=== PATIENT | female | born 1975 | race African-American/Black ===

== ENCOUNTER 2024-07-14 22:37 | Inpatient (IN) | payer MEDICARE ==
[~2024-07-14] VITALS: Ht 182.9 cm; Wt 106.6 kg
[2024-07-14 23:10] LABS: BASOPHILS % 0.3 % (0.0-1.0); EOSINOPHILS # (AUTO) 0.1 (0.0-0.4); EOSINOPHILS % 2.9 % (0.0-6.0); LYMPHOCYTES # (AUTO) 0.3 (1.0-3.2); LYMPHOCYTES % 8.5 % (18.0-39.1); MEAN CORPUSCULAR HEMOGLOBIN 28.3 pg (28-32); MEAN CORPUSCULAR HGB CONC 30.7 g/dL (31-35); MEAN CORPUSCULAR VOLUME 92.3 fL (81-99); MONOCYTES # (AUTO) 0.2 (0.2-0.8); MONOCYTES % 6.4 % (4.4-11.3); NEUTROPHILS # (AUTO) 2.8 (2.1-6.9); NEUTROPHILS % 81.6 % (38.7-80.0); RED BLOOD COUNT 2.33 x10e6/uL (3.6-5.1); RED CELL DISTRIBUTION WIDTH 15.8 % (11.7-14.4); WHITE BLOOD COUNT 3.42 x10e3/uL (4.8-10.8)
[2024-07-14 23:14] LABS: HEMATOCRIT 21.5 % (34.2-44.1); HEMOGLOBIN 6.6 g/dL (12.0-16.0); PLATELET COUNT 28 x10e3/uL (140-360)
[2024-07-14 23:32] LABS: ALBUMIN 2.6 g/dL (3.5-5.0); ALBUMIN/GLOBULIN RATIO 0.9 (0.8-2.0); ANION GAP 15.6 mmol/L (8-16); BILIRUBIN,TOTAL 0.3 mg/dL (0.2-1.2); CALCIUM 7.3 mg/dL (8.4-10.2); CREATININE, SERUM 4.11 mg/dL (0.57-1.11); TOTAL PROTEIN 5.5 g/dL (6.5-8.1)
[2024-07-14 23:42] LABS: POTASSIUM 5.6 mmol/L (3.5-5.1)
[2024-07-15] VITALS (60 sets, daily range): BP systolic 101–164; BP diastolic 45–92; PULSE 55–84; RESP 11–27; TEMP 94–98.4; O2SAT 90–100
[2024-07-15] MEDS ORDERED: CALCIUM GLUCONATE 10% INJ 9.3 MEQ in SODIUM CHLORIDE 0.9% 100 ML IV ONE
[2024-07-15] MEDS ORDERED: SODIUM CHLORIDE FLUSH 10 ML SYR INJ PRN (00:15)
[2024-07-15] MEDS: SODIUM CHLORIDE 0.9% 1000ML 1,000 ML IV ONE (00:26)
[2024-07-15] MEDS ORDERED: METHYLPREDNISOLONE SOD SUCC 125 MG/2ML VIAL IV ONE (00:30)
[2024-07-15] MEDS: METHYLPREDNISOLONE SOD SUCC 500 MG in SODIUM CHLORIDE 0.9% 100 ML IV ONE (00:37)
[2024-07-15] MEDS: MUPIROCIN 2% OINT 22 GM TUBE TOP SCH ×2 (00:37→18:00)
[2024-07-15] MEDS: SODIUM BICARBONATE 8.4% INJ 50 ML SYR IV STA (00:38)
[2024-07-15] MEDS: INSULIN REGULAR, HUMAN 100 UNIT/1 ML IV ONE ×2 (00:40→11:25)
[2024-07-15 00:41] LABS: BILIRUBIN,URINE NEGATIVE (NEGATIVE); CLARITY,URINE CLOUDY (CLEAR); COLOR,URINE YELLOW (YELLOW); GLUCOSE, URINE NEGATIVE (NEGATIVE); KETONES,URINE NEGATIVE (NEGATIVE); LEUKOCYTE ESTERASE ,URINE LARGE (NEGATIVE); NITRITE,URINE NEGATIVE (NEGATIVE); PH,URINE 7.5 (5 - 7); PROTEIN,URINE DIPSTICK >=300 (NEGATIVE); URINE UROBILINOGEN 0.2 mg/dL (0.2 - 1)
[2024-07-15] MEDS: CALCIUM GLUC 1 G/50 ML NACL 50 ML IV SCH (00:41)
[2024-07-15] MEDS: DEXTROSE 50% SYRINGE 50 ML IV STA ×2 (00:41→11:22)
[2024-07-15] MEDS: ALBUTEROL SULF 0.083% NEB SOLN 3 ML NEB NEB STA ×2 (00:54→11:29)
[2024-07-15 01:13] LABS: WBC,URINE (MAN) >50 /HPF (0-5)
[2024-07-15 01:14] LABS: BACTERIA,URINE MANY /HPF; EPITHELIAL CELLS,URINE MODERATE /LPF; RENAL EPITHELIAL CELLS,URINE FEW
[2024-07-15] MEDS: SODIUM CHLORIDE 0.9% 250ML 250 ML IV ONE (02:13)
[2024-07-15] MEDS ORDERED: LIPITOR20 MG PO (02:23)
[2024-07-15] MEDS ORDERED: LEVOTHYROXINE88 MCG PO (02:23)
[2024-07-15] MEDS ORDERED: HYDRALAZINE HCL50 MG PO (02:23)
[2024-07-15] MEDS ORDERED: OMEPRAZOLE40 MG PO (02:23)
[2024-07-15] MEDS ORDERED: HYDROCODON-ACE1 EAC9 (02:23)
[2024-07-15] MEDS ORDERED: AMBIEN10 MG PO (02:23)
[2024-07-15] MEDS ORDERED: NITROGLYCERIN0.4 MG SL (02:23)
[2024-07-15] MEDS ORDERED: MULTIVITAMIN1 EACH (02:23)
[2024-07-15] MEDS ORDERED: CELLCEPT500 MG PO (02:23)
[2024-07-15] MEDS ORDERED: RENVELA0.8 GM PO (02:23)
[2024-07-15] MEDS ORDERED: ASPIRIN EC81 MG PO (02:23)
[2024-07-15] MEDS ORDERED: ZOLOFT50 MG PO (02:23)
[2024-07-15] MEDS ORDERED: MIRABEGRON ER50 MG (02:23)
[2024-07-15] MEDS ORDERED: SODIUM BICARBO650 MG PO (02:23)
[2024-07-15] MEDS ORDERED: COREG12.5 MG PO (02:23)
[2024-07-15] MEDS ORDERED: HYDROXYCHLOROQ200 MG PO (02:23)
[2024-07-15] MEDS ORDERED: ASCORBIC ACID500 M2 PO (02:23)
[2024-07-15] MEDS ORDERED: FERROUS SULFAT325 MG PO (02:23)
[2024-07-15] MEDS ORDERED: PROTEIN (02:23)
[2024-07-15] MEDS ORDERED: FOLIC ACID0.4 MG PO (02:23)
[2024-07-15] MEDS ORDERED: NITROGLYCERIN 0.4 MG SUBL SL PRN (09:15)
[2024-07-15] MEDS ORDERED: DEXTROSE 50% SYRINGE 50 ML IV PRN (09:15)
[2024-07-15] MEDS ORDERED: TIZANIDINE HCL4 M1 PO (10:03)
[2024-07-15 10:09] LABS: BASOPHILS % 0.2 % (0.0-1.0); EOSINOPHILS % 0.2 % (0.0-6.0); HEMATOCRIT 23.6 % (34.2-44.1); HEMOGLOBIN 7.4 g/dL (12.0-16.0); LYMPHOCYTES # (AUTO) 0.1 (1.0-3.2); LYMPHOCYTES % 1.8 % (18.0-39.1); MEAN CORPUSCULAR HEMOGLOBIN 28.8 pg (28-32); MEAN CORPUSCULAR HGB CONC 31.4 g/dL (31-35); MEAN CORPUSCULAR VOLUME 91.8 fL (81-99); MONOCYTES # (AUTO) 0.1 (0.2-0.8); MONOCYTES % 1.1 % (4.4-11.3); NEUTROPHILS # (AUTO) 5.3 (2.1-6.9); NEUTROPHILS % 96.3 % (38.7-80.0); RED BLOOD COUNT 2.57 x10e6/uL (3.6-5.1); RED CELL DISTRIBUTION WIDTH 15.5 % (11.7-14.4); WHITE BLOOD COUNT 5.51 x10e3/uL (4.8-10.8)
[2024-07-15 10:11] LABS: PLATELET COUNT 45 x10e3/uL (140-360)
[2024-07-15 10:21] LABS: BASOPHILS % (MANUAL) 1 % (0-1.5); EOSINOPHILS % (MANUAL) 3 % (0-7); LYMPHOCYTES % (MANUAL) 5 % (19-48); MONOCYTES % (MANUAL) 8 % (3.4-9.0); NEUTROPHILS % (MANUAL) 83 % (40-74); NUCLEATED RED BLOOD CELLS 1
[2024-07-15 10:22] LABS: HYPOCHROMASIA SLIGHT; PLATELET ESTIMATE MARKEDLY DECREASED; PLATELET MORPHOLOGY COMMENT NORMAL; POIKILOCYTOSIS SLIG
[2024-07-15 10:31] LABS: ANION GAP 15.3 mmol/L (8-16); CREATININE, SERUM 4.32 mg/dL (0.57-1.11)
[2024-07-15 10:39] LABS: POTASSIUM 6.3 mmol/L (3.5-5.1)
[2024-07-15 10:49] LABS: MAGNESIUM 1.5 MG/DL (1.3-2.1); PHOSPHORUS 3.7 MG/DL (2.3-4.7)
[2024-07-15] MEDS: TIZANIDINE HCL 4 MG TAB PO SCH (10:57)
[2024-07-15] MEDS: HYDROCODONE/APAP 10MG-325MG TAB PO PRN (10:58)
[2024-07-15 11:03] LABS: INR 1.02
[2024-07-15 11:04] LABS: PARTIAL THROMBOPLASTIN TIME 41.8 seconds (23.8-35.5)
[2024-07-15 11:10] LABS: THYROID STIMULATING HORMONE 5.933 uIU/mL (0.350-4.940)
[2024-07-15] MEDS: CALCIUM GLUC 1 G/50 ML NACL 50 ML IV ONE (11:25)
[2024-07-15 11:26] LABS: FOLATE 8.9 ng/mL (7.0-15.4)
[2024-07-15] MEDS: INSULIN LISPRO 100 UNIT/1 ML 3ML VIAL SQ SCH (11:48)
[2024-07-15] MEDS: CHLOROTHIAZIDE SODIUM 500 MG VIAL IV ONE ×2 (11:49→15:10)
[2024-07-15] MEDS: FUROSEMIDE INJ 100 MG in SODIUM CHLORIDE 0.9% 90 ML IV SCH (11:55)
[2024-07-15] MEDS: SODIUM BICARBONATE 650 MG TAB PO SCH (15:10)
[2024-07-15] MEDS: ASCORBIC ACID 500 MG TAB PO SCH (16:51)
[2024-07-15] MEDS: SENNA-S TABLET PO SCH (16:51)
[2024-07-15] MEDS: CARVEDILOL 12.5 MG TAB PO SCH (16:52)
[2024-07-15 16:56] LABS: ANION GAP 18.6 mmol/L (8-16); CALCIUM 8.5 mg/dL (8.4-10.2); CREATININE, SERUM 4.4 mg/dL (0.57-1.11)
[2024-07-15 16:58] LABS: POTASSIUM 6.6 mmol/L (3.5-5.1)
[2024-07-15] MEDS: LORAZEPAM INJ 2 MG/ML VIAL IV ONE (18:35)
[2024-07-15] MEDS: ATORVASTATIN 40 MG TAB PO SCH (20:17)
[2024-07-15] MEDS ORDERED: ZOLPIDEM TARTRATE 10 MG TAB PO PRN (21:00)
[2024-07-15] MEDS: HEPARIN SOD (PORCINE) 1000 UNIT/ML SDV IV ONE (22:18)
[2024-07-15] MEDS: MANNITOL 25% 12.5GM/50 ML VIAL IV PRN (22:28)
[2024-07-16] VITALS (41 sets, daily range): BP systolic 102–160; BP diastolic 57–109; PULSE 60–94; RESP 11–23; TEMP 94–98.4; O2SAT 88–100
[2024-07-16] MEDS: LEVOTHYROXINE SODIUM 88 MCG TAB PO SCH (06:00)
[2024-07-16 06:19] LABS: BASOPHILS % 0.1 % (0.0-1.0); EOSINOPHILS % 0.1 % (0.0-6.0); HEMATOCRIT 22.8 % (34.2-44.1); HEMOGLOBIN 7.2 g/dL (12.0-16.0); LYMPHOCYTES # (AUTO) 0.2 (1.0-3.2); LYMPHOCYTES % 2.3 % (18.0-39.1); MEAN CORPUSCULAR HEMOGLOBIN 29.1 pg (28-32); MEAN CORPUSCULAR HGB CONC 31.6 g/dL (31-35); MEAN CORPUSCULAR VOLUME 92.3 fL (81-99); MONOCYTES # (AUTO) 0.3 (0.2-0.8); MONOCYTES % 3.2 % (4.4-11.3); NEUTROPHILS # (AUTO) 8.3 (2.1-6.9); NEUTROPHILS % 93.6 % (38.7-80.0); PLATELET COUNT 37 x10e3/uL (140-360); RED BLOOD COUNT 2.47 x10e6/uL (3.6-5.1); RED CELL DISTRIBUTION WIDTH 15.6 % (11.7-14.4); WHITE BLOOD COUNT 8.87 x10e3/uL (4.8-10.8)
[2024-07-16] MEDS: ONDANSETRON HCL INJ 2MG/ML 2ML 2 MG/ML VIAL IV PRN (06:41)
[2024-07-16 06:47] LABS: ALBUMIN/GLOBULIN RATIO 0.9 (0.8-2.0); ANION GAP 14.9 mmol/L (8-16); BILIRUBIN,TOTAL 0.4 mg/dL (0.2-1.2); CALCIUM 8.5 mg/dL (8.4-10.2); CREATININE, SERUM 3.63 mg/dL (0.57-1.11); POTASSIUM 4.9 mmol/L (3.5-5.1); TOTAL PROTEIN 6.3 g/dL (6.5-8.1)
[2024-07-16] MEDS: ASPIRIN 81 MG ENTERIC COATED PO SCH (09:41)
[2024-07-16] MEDS: FOLIC ACID 1 MG TAB PO SCH (09:41)
[2024-07-16] MEDS: SERTRALINE HCL 50 MG TAB PO SCH (09:41)
[2024-07-16] MEDS: LEVETIRACETAM 500MG/5ML VIAL 500 MG in SODIUM CHLORIDE 0.9% 100 ML IV SCH (10:57)
[2024-07-16] MEDS: HEPARIN SOD (PORCINE) 1000 UNIT/ML SDV ONE (11:21)
[2024-07-16] MEDS: SODIUM CHLORIDE 0.9% 1000ML 2,000 ML ONE (11:22)
[2024-07-16] MEDS: SODIUM CHLORIDE 0.9% 250ML 250 ML IV ONE (11:22)
[2024-07-16 12:25] LABS: % IRON SATURATION 78 % (15-50); IRON 171 ug/dL (50-170); TOTAL IRON BINDING CAPACITY 220 ug/dL (261-478); TRANSFERRIN 157 mg/dL (180-382)
[2024-07-16] MEDS ORDERED: PIPERACILLIN/TAZOBACTAM SOD 2.25 GM VIAL ONE (14:58)
[2024-07-16] MEDS: HYDRALAZINE HCL 25 MG TAB PO SCH (15:12)
[2024-07-16] MEDS: NYSTATIN 15 GM POWDER UD BTL TOP SCH (16:59)
[2024-07-16] MEDS: CADEXOMER IODINE 30 GM TUBE TOP SCH (16:59)
[2024-07-16] MEDS: ZINC OXIDE 30 GM TUBE TOP SCH (16:59)
[2024-07-16] MEDS: MEROPENEM 1 GM in SODIUM CHLORIDE 0.9% 100 ML IV SCH (20:30)
[2024-07-16] MEDS: Morphine 4mg INJECTION 4 MG/ML INJ IV PRN (21:56)
[2024-07-17] VITALS (24 sets, daily range): BP systolic 106–160; BP diastolic 58–111; PULSE 39–77; RESP 8–18; TEMP 95–97.8; O2SAT 86–100
[2024-07-17 06:10] LABS: COMPLEMENT C3 134 mg/dL (82-167)
[2024-07-17 07:29] LABS: COMPLEMENT C4 38 mg/dL (12-38)
[2024-07-17 07:35] LABS: HEPATITIS B CORE AB TOTAL Negative; HEPATITIS B SURFACE AG Negative; HEPATITIS C ANTIBODY Non Reactive
[2024-07-17 07:37] LABS: HEPATITIS B SURFACE AB QUANT Non Reactive
[2024-07-17 08:02] LABS: BASOPHILS % 0.3 % (0.0-1.0); EOSINOPHILS # (AUTO) 0.2 (0.0-0.4); EOSINOPHILS % 2.2 % (0.0-6.0); HEMATOCRIT 24.1 % (34.2-44.1); HEMOGLOBIN 7.5 g/dL (12.0-16.0); LYMPHOCYTES # (AUTO) 0.5 (1.0-3.2); LYMPHOCYTES % 7.9 % (18.0-39.1); MEAN CORPUSCULAR HGB CONC 31.1 g/dL (31-35); MEAN CORPUSCULAR VOLUME 93.1 fL (81-99); MONOCYTES # (AUTO) 0.4 (0.2-0.8); NEUTROPHILS # (AUTO) 5.7 (2.1-6.9); NEUTROPHILS % 83.3 % (38.7-80.0); RED BLOOD COUNT 2.59 x10e6/uL (3.6-5.1); RED CELL DISTRIBUTION WIDTH 15.5 % (11.7-14.4); WHITE BLOOD COUNT 6.86 x10e3/uL (4.8-10.8)
[2024-07-17 08:09] LABS: PLATELET COUNT 41 x10e3/uL (140-360)
[2024-07-17] MEDS ORDERED: HEPARIN SOD (PORCINE) 1000 UNIT/ML SDV IV PRN (10:00)
[2024-07-17] MEDS ORDERED: SODIUM CHLORIDE 0.9% 1000ML 2,000 ML IV PRN (10:00)
[2024-07-17 11:49] LABS: ANTI DNA DS ANTIBODY <1 IU/mL (0-9)
[2024-07-17] MEDS: SODIUM CHLORIDE 0.9% 250ML 250 ML IV ONE (12:29)
[2024-07-18] VITALS (19 sets, daily range): BP systolic 101–145; BP diastolic 53–83; PULSE 42–81; RESP 12–21; TEMP 97.4–97.9; O2SAT 91–98
[2024-07-18 07:45] LABS: BASOPHILS % 0.3 % (0.0-1.0); EOSINOPHILS # (AUTO) 0.2 (0.0-0.4); EOSINOPHILS % 3.5 % (0.0-6.0); HEMATOCRIT 28.9 % (34.2-44.1); HEMOGLOBIN 9.3 g/dL (12.0-16.0); LYMPHOCYTES # (AUTO) 0.5 (1.0-3.2); LYMPHOCYTES % 7.1 % (18.0-39.1); MEAN CORPUSCULAR HEMOGLOBIN 28.3 pg (28-32); MEAN CORPUSCULAR HGB CONC 32.2 g/dL (31-35); MONOCYTES # (AUTO) 0.5 (0.2-0.8); MONOCYTES % 7.6 % (4.4-11.3); NEUTROPHILS # (AUTO) 5.6 (2.1-6.9); NEUTROPHILS % 81.2 % (38.7-80.0); PLATELET COUNT 48 x10e3/uL (140-360); RED BLOOD COUNT 3.29 x10e6/uL (3.6-5.1); RED CELL DISTRIBUTION WIDTH 15.9 % (11.7-14.4); WHITE BLOOD COUNT 6.88 x10e3/uL (4.8-10.8)
[2024-07-18 07:46] LABS: MEAN CORPUSCULAR VOLUME 87.8 fL (81-99)
[2024-07-18] MEDS ORDERED: LACTULOSE SYRUP 20 GM/30 ML UDC PO PRN (08:15)
[2024-07-18 08:16] LABS: ANION GAP 12.1 mmol/L (8-16); CALCIUM 8.3 mg/dL (8.4-10.2); CREATININE, SERUM 2.59 mg/dL (0.57-1.11); POTASSIUM 4.1 mmol/L (3.5-5.1)
[2024-07-19] VITALS (39 sets, daily range): BP systolic 92–166; BP diastolic 55–99; PULSE 35–87; RESP 11–33; TEMP 97.4–97.7; O2SAT 91–100
[2024-07-19 07:37] LABS: ANION GAP 15.9 mmol/L (8-16); CALCIUM 8.6 mg/dL (8.4-10.2); CREATININE, SERUM 3.34 mg/dL (0.57-1.11); PHOSPHORUS 3.5 MG/DL (2.3-4.7); POTASSIUM 3.9 mmol/L (3.5-5.1)
[2024-07-19] MEDS ORDERED: ALBUMIN 25% 12.5GM 0.25 GM/ML BTL IV PRN (09:45)
[2024-07-19] MEDS ORDERED: LIDOCAINE HCL 1% 30ML-PF VIAL ONE (11:12)
[2024-07-19] MEDS ORDERED: SODIUM CHLORIDE 0.9% 500ML 500 ML ONE (11:12)
[2024-07-19] MEDS ORDERED: MIDAZOLAM HCL 2 MG/2 ML VIAL ONE (12:48)
[2024-07-19] MEDS ORDERED: HEPARIN SOD (PORCINE) 1000 UNIT/ML SDV ONE (12:48)
[2024-07-19] MEDS ORDERED: FENTANYL CITRATE/PF 100MCG/2 ML INJ ONE (12:49)
[2024-07-19] MEDS ORDERED: SODIUM CHLORIDE 0.9% 250ML 250 ML ONE (12:49)
[2024-07-20] VITALS (18 sets, daily range): BP systolic 102–141; BP diastolic 54–81; PULSE 50–79; RESP 12–20; TEMP 97.3–97.8; O2SAT 95–100
[2024-07-20 07:03] LABS: BASOPHILS % 0.3 % (0.0-1.0); EOSINOPHILS # (AUTO) 0.3 (0.0-0.4); EOSINOPHILS % 3.4 % (0.0-6.0); HEMATOCRIT 28.9 % (34.2-44.1); HEMOGLOBIN 9.2 g/dL (12.0-16.0); LYMPHOCYTES # (AUTO) 0.4 (1.0-3.2); LYMPHOCYTES % 5.5 % (18.0-39.1); MEAN CORPUSCULAR HEMOGLOBIN 28.1 pg (28-32); MEAN CORPUSCULAR HGB CONC 31.8 g/dL (31-35); MEAN CORPUSCULAR VOLUME 88.4 fL (81-99); MONOCYTES # (AUTO) 0.6 (0.2-0.8); MONOCYTES % 7.8 % (4.4-11.3); NEUTROPHILS # (AUTO) 6.1 (2.1-6.9); NEUTROPHILS % 82.7 % (38.7-80.0); PLATELET COUNT 59 x10e3/uL (140-360); RED BLOOD COUNT 3.27 x10e6/uL (3.6-5.1); RED CELL DISTRIBUTION WIDTH 15.1 % (11.7-14.4); WHITE BLOOD COUNT 7.33 x10e3/uL (4.8-10.8)
[2024-07-20 07:27] LABS: ANION GAP 13.7 mmol/L (8-16); CALCIUM 8.6 mg/dL (8.4-10.2); CREATININE, SERUM 2.45 mg/dL (0.57-1.11); PHOSPHORUS 2.7 MG/DL (2.3-4.7); POTASSIUM 3.7 mmol/L (3.5-5.1)
[2024-07-21] VITALS (17 sets, daily range): BP systolic 97–147; BP diastolic 57–87; PULSE 52–74; RESP 11–18; TEMP 97.1–97.7; O2SAT 91–99
[2024-07-21 08:06] LABS: BASOPHILS % 0.2 % (0.0-1.0); EOSINOPHILS # (AUTO) 0.3 (0.0-0.4); EOSINOPHILS % 3.2 % (0.0-6.0); HEMATOCRIT 29.1 % (34.2-44.1); HEMOGLOBIN 9.2 g/dL (12.0-16.0); LYMPHOCYTES # (AUTO) 0.4 (1.0-3.2); LYMPHOCYTES % 4.3 % (18.0-39.1); MEAN CORPUSCULAR HEMOGLOBIN 28.1 pg (28-32); MEAN CORPUSCULAR HGB CONC 31.6 g/dL (31-35); MONOCYTES # (AUTO) 0.6 (0.2-0.8); MONOCYTES % 6.5 % (4.4-11.3); NEUTROPHILS # (AUTO) 7.2 (2.1-6.9); NEUTROPHILS % 85.4 % (38.7-80.0); PLATELET COUNT 75 x10e3/uL (140-360); RED BLOOD COUNT 3.27 x10e6/uL (3.6-5.1); RED CELL DISTRIBUTION WIDTH 14.9 % (11.7-14.4); WHITE BLOOD COUNT 8.44 x10e3/uL (4.8-10.8)
[2024-07-21 08:37] LABS: ALBUMIN 2.9 g/dL (3.5-5.0); ALBUMIN/GLOBULIN RATIO 0.9 (0.8-2.0); ANION GAP 14.7 mmol/L (8-16); BILIRUBIN,TOTAL 0.5 mg/dL (0.2-1.2); CALCIUM 8.6 mg/dL (8.4-10.2); CREATININE, SERUM 3.28 mg/dL (0.57-1.11); POTASSIUM 3.7 mmol/L (3.5-5.1); TOTAL PROTEIN 6.1 g/dL (6.5-8.1)
[2024-07-22] VITALS (11 sets, daily range): BP systolic 112–147; BP diastolic 64–86; PULSE 54–98; RESP 15–20; TEMP 97.3–99.5; O2SAT 90–100
[2024-07-22] MEDS: ACETAMINOPHEN 325 MG TAB PO PRN (21:52)
[2024-07-23] VITALS (7 sets, daily range): BP systolic 116–152; BP diastolic 65–88; PULSE 60–73; RESP 16–20; TEMP 97.5–99.7; O2SAT 99–100
[2024-07-23] MEDS ORDERED: ONDANSETRON HCL 4 MG ORAL DISINTEGRATING TAB PO PRN (08:45)
[2024-07-23] MEDS: SEVELAMER CARBONATE 800 MG TAB PO SCH (12:00)
[2024-07-23] MEDS ORDERED: SEVELAMER CARBONATE 800 MG TAB PO SCH (12:00)
[2024-07-23] MEDS: MYCOPHENOLATE MOFETIL 250 MG CAP PO SCH (12:21)
[2024-07-23] MEDS: FERROUS SULFATE 325 MG TAB PO SCH (12:22)
[2024-07-23] MEDS: HYDROXYCHLOROQUINE SULFATE 200 MG TAB PO SCH (12:23)
[2024-07-23] MEDS: PANTOPRAZOLE SODIUM 20 MG TABLET.DR PO SCH (12:24)
[2024-07-23] MEDS: LEVETIRACETAM 500 MG TAB PO SCH (12:37)
[2024-07-23 13:58] LABS: ANION GAP 14.5 mmol/L (8-16); CALCIUM 8.4 mg/dL (8.4-10.2); CREATININE, SERUM 2.97 mg/dL (0.57-1.11); POTASSIUM 3.5 mmol/L (3.5-5.1)
[2024-07-23] MEDS: VANCOMYCIN HCL 125 MG CAPSULE PO SCH (21:24)
[2024-07-23] MEDS: HYDROCODONE/APAP 10MG-325MG TAB PO PRN (21:30)
[2024-07-23] MEDS: CHOLESTYRAMINE 4 GM PACKET PO PRN (23:07)
[2024-07-24] VITALS (7 sets, daily range): BP systolic 127–158; BP diastolic 72–93; PULSE 60–79; RESP 17–20; TEMP 97.2–98.2; O2SAT 98–100
[2024-07-24 07:26] LABS: ANION GAP 14.2 mmol/L (8-16); CREATININE, SERUM 3.38 mg/dL (0.57-1.11)
[2024-07-24 07:27] LABS: POTASSIUM 3.2 mmol/L (3.5-5.1)
[2024-07-24] MEDS: SODIUM CHLORIDE 0.9% 1000ML 1,000 ML ONE (17:33)
[2024-07-24] MEDS: HEPARIN SOD (PORCINE) 1000 UNIT/ML SDV ONE (17:34)
[2024-07-24] MEDS ORDERED: SODIUM CHLORIDE 0.9% 1000ML 2,000 ML IV PRN (18:00)
[2024-07-24] MEDS ORDERED: HEPARIN SOD (PORCINE) 1000 UNIT/ML SDV IV PRN (18:00)
[2024-07-25] VITALS (9 sets, daily range): BP systolic 133–149; BP diastolic 68–88; PULSE 64–79; RESP 18–20; TEMP 98–98.6; O2SAT 96–100
[2024-07-25 07:03] LABS: ANION GAP 14.3 mmol/L (8-16); CALCIUM 8.6 mg/dL (8.4-10.2); CREATININE, SERUM 2.38 mg/dL (0.57-1.11)
[2024-07-25 07:04] LABS: POTASSIUM 3.3 mmol/L (3.5-5.1)
[2024-07-25 08:50] LABS: BASOPHILS % 0.4 % (0.0-1.0); EOSINOPHILS # (AUTO) 0.1 (0.0-0.4); EOSINOPHILS % 2.5 % (0.0-6.0); HEMATOCRIT 29.4 % (34.2-44.1); HEMOGLOBIN 9.5 g/dL (12.0-16.0); LYMPHOCYTES # (AUTO) 0.4 (1.0-3.2); LYMPHOCYTES % 7.6 % (18.0-39.1); MEAN CORPUSCULAR HEMOGLOBIN 28.4 pg (28-32); MEAN CORPUSCULAR HGB CONC 32.3 g/dL (31-35); MEAN CORPUSCULAR VOLUME 87.8 fL (81-99); MONOCYTES # (AUTO) 0.5 (0.2-0.8); MONOCYTES % 8.8 % (4.4-11.3); NEUTROPHILS # (AUTO) 4.6 (2.1-6.9); NEUTROPHILS % 80.5 % (38.7-80.0); PLATELET COUNT 139 x10e3/uL (140-360); RED BLOOD COUNT 3.35 x10e6/uL (3.6-5.1); RED CELL DISTRIBUTION WIDTH 14.5 % (11.7-14.4); WHITE BLOOD COUNT 5.65 x10e3/uL (4.8-10.8)
[2024-07-26] VITALS (8 sets, daily range): BP systolic 122–168; BP diastolic 66–90; PULSE 66–91; RESP 18–22; TEMP 98–98.9; O2SAT 98–100
[2024-07-26 09:47] LABS: ANION GAP 12.5 mmol/L (8-16); CALCIUM 8.2 mg/dL (8.4-10.2); CREATININE, SERUM 3.56 mg/dL (0.57-1.11); POTASSIUM 3.5 mmol/L (3.5-5.1)
[2024-07-27 01:00] VITALS: BP 124/67; PULSE 65; RESP 20; TEMP 98; O2SAT 100
[2024-07-27 05:20] VITALS: BP 150/84; PULSE 72; RESP 16; TEMP 98.1; O2SAT 100
[2024-07-27 08:00] VITALS: BP 115/82; PULSE 80; RESP 18; TEMP 98.4; O2SAT 100
[2024-07-27 16:33] VITALS: BP 130/85; PULSE 79; RESP 18; TEMP 98.4; O2SAT 100
[2024-07-27] MEDS: EPOETIN ALFA-EPBX 10,000 UNIT/ML VIAL SC ONE (16:54)
[2024-07-27] MEDS: FUROSEMIDE 40 MG TAB PO SCH (16:56)
[2024-07-27 16:57] VITALS: BP 130/85; PULSE 79
== END 2024-07-27 17:30 | disposition home health service (06) | DRG 698 ==
LOC: ER 22:42 → ERHOLD 07-15 00:12 → ICU 07-15 01:20 → MED/SURG3 07-22 04:27
PROVIDERS: ADMIT Internal Medicine; ATTEND Internal Medicine
PROC: 30233N1 Transfusion of Nonautologous Red Blood Cells into Peripheral Vein, Percutaneous Approach (ICD-10-PCS; principal; 2024-07-15)
PROC: 30233R1 Transfusion of Nonautologous Platelets into Peripheral Vein, Percutaneous Approach (ICD-10-PCS; 2024-07-15)
PROC: 02HV33Z Insertion of Infusion Device into Superior Vena Cava, Percutaneous Approach (ICD-10-PCS; 2024-07-15)
PROC: 5A1D70Z Performance of Urinary Filtration, Intermittent, Less than 6 Hours Per Day (ICD-10-PCS; 2024-07-15)
PROC: 3E0333Z Introduction of Anti-inflammatory into Peripheral Vein, Percutaneous Approach (ICD-10-PCS; 2024-07-15)
PROC: 02H633Z Insertion of Infusion Device into Right Atrium, Percutaneous Approach (ICD-10-PCS; 2024-07-19)
PROC: 0JH63XZ Insertion of Tunneled Vascular Access Device into Chest Subcutaneous Tissue and Fascia, Percutaneous Approach (ICD-10-PCS; 2024-07-19)
DX: T83.510A Infection and inflammatory reaction due to cystostomy catheter, initial encounter (principal); A41.89 Other specified sepsis; N17.0 Acute kidney failure with tubular necrosis; J18.9 Pneumonia, unspecified organism; E43 Unspecified severe protein-calorie malnutrition; L89.153 Pressure ulcer of sacral region, stage 3; N18.6 End stage renal disease; D61.818 Other pancytopenia; E87.20 Acidosis, unspecified; I47.29 Other ventricular tachycardia; R04.2 Hemoptysis; G36.0 Neuromyelitis optica [Devic]; L89.616 Pressure-induced deep tissue damage of right heel; L89.620 Pressure ulcer of left heel, unstageable; M32.14 Glomerular disease in systemic lupus erythematosus; Z99.2 Dependence on renal dialysis; R68.0 Hypothermia, not associated with low environmental temperature; N30.90 Cystitis, unspecified without hematuria; M32.10 Systemic lupus erythematosus, organ or system involvement unspecified; E87.5 Hyperkalemia; I10 Essential (primary) hypertension; I25.10 Atherosclerotic heart disease of native coronary artery without angina pectoris; E03.9 Hypothyroidism, unspecified; N31.9 Neuromuscular dysfunction of bladder, unspecified; R04.0 Epistaxis; I73.9 Peripheral vascular disease, unspecified; R53.81 Other malaise; E87.70 Fluid overload, unspecified; K21.00 Gastro-esophageal reflux disease with esophagitis, without bleeding; F32.9 Major depressive disorder, single episode, unspecified; F41.8 Other specified anxiety disorders; E66.9 Obesity, unspecified; Z68.35 Body mass index [BMI] 35.0-35.9, adult; B96.4 Proteus (mirabilis) (morganii) as the cause of diseases classified elsewhere; Z79.82 Long term (current) use of aspirin; Z79.69 Long term (current) use of other immunomodulators and immunosuppressants; Z79.890 Hormone replacement therapy; Z99.3 Dependence on wheelchair; Z88.6 Allergy status to analgesic agent; Y83.3 Surgical operation with formation of external stoma as the cause of abnormal reaction of the patient, or of later complication, without mention of misadventure at the time of the procedure
CPT/HCPCS: 36415; 36558; 71045; 71250; 74176; 74470; 76937; 77001; 80048; 80053; 81001; 82607; 82728; 82746; 82948; 83036; 83540; 83605; 83735; 83880; 84100; 84443; 84466; 84484; 85025; 85610; 85730; 86160; 86225; 86704; 86706; 86803; 86850; 86880; 86900; 86920; 86922; 87040; 87086; 87186; 87340; 93005; 94640; 94799; 99252; 99285; C1769; C1892; J0690; J0696; J1644; J1940; J2003; J2060; J2150; J2185; J2250; J2270; J2405; J2470; J2543; J2919; J7030; J7040; J7050; J7799; P9016; P9034